=== PATIENT | male | born 1945 ===

== ENCOUNTER 2016-07-26 20:04 | Emergency (ER) | payer MEDICARE, OTHER ==
[2016-07-26 20:28] VITALS: BP 131/63
[2016-07-26] MEDS ORDERED: Acetaminophen 325 MG Tab PO ONE (21:07)
--- NOTE | 2016-07-26 21:34 | EDM.PDOC ---
ED HPI GENERAL MEDICAL PROBLEM - General Chief Complaint: General Stated Complaint: FELL HURT HEAD Time Seen by Provider: 07/26/16 20:30 Source of Information: Reports: Patient History Limitations: Reports: No limitations - History of Present Illness INITIAL COMMENTS - FREE TEXT/NARRATIVE: This is a 71yo M here fishing at the [employer] who was socially drinking and fell on the wood floor and hit his head and left shoulder. Patient was having difficulty moving his left shoulder and was brought in by EMT. 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 Patient denies any loc or dizziness. 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 Onset: sudden Location: Reports: head, face, upper extremity, left Quality: Reports: Ache Severity: moderate Improves with: Reports: None Worsens with: Reports: Movement Associated Symptoms: Reports: denies other symptoms left shoulder Pain Score (Numeric/FACES): 7 - Related Data Allergies Allergy/AdvReac Type Severity Reaction Status Date / Time latex Allergy Itching Verified 07/26/16 20:16 Home Meds: Home Meds Allopurinol [Zyloprim] 100 mg PO DAILY 07/26/16 [History] Aspirin 324 mg PO ONETIME 07/26/16 [History] Carvedilol 25 mg PO DAILY 07/26/16 [History] Furosemide [Lasix] 40 mg PO DAILY 07/26/16 [History] Isosorbide Mononitrate 20 mg PO DAILY 07/26/16 [History] Memantine HCl [Namenda Xr] 1 each PO DAILY 07/26/16 [History] Memantine [Namenda] 5 mg PO DAILY 07/26/16 [History] Omeprazole 20 mg PO DAILY 07/26/16 [History] Pramipexole [Mirapex] 1 mg PO DAILY 07/26/16 [History] Sertraline [Zoloft] 25 mg PO BEDTIME 07/26/16 [History] Tolterodine Tartrate [Detrol LA] 2 mg PO DAILY 07/26/16 [History] amLODIPine [Norvasc] 5 mg PO DAILY 07/26/16 [History] hydrALAZINE [Apresoline] 25 mg PO DAILY 07/26/16 [History] metFORMIN [Glucophage XR] 500 mg PO DAILY 07/26/16 [History] ED ROS GENERAL - Review of Systems Review Of Systems: ROS reveals no pertinent complaints other than HPI. ED EXAM, GENERAL - Physical Exam Exam: See Below Exam Limited By: No limitations General Appearance: alert, WD/WN, no apparent distress Eye Exam: bilateral eye: EOMI, PERRL Ears: normal external exam Nose: normal inspection Throat/Mouth: Normal inspection Head: atraumatic, normocephalic, facial tenderness Neck: normal inspection, supple, non-tender Respiratory/Chest: no respiratory distress, lungs clear, normal breath sounds Cardiovascular: irregularly irregular GI/Abdominal: normal bowel sounds Extremities: pedal edema, arm pain Neurological: alert, oriented, CN II-XII intact Psychiatric: normal affect, normal mood Skin Exam: Warm, Dry, Intact Course - Vital Signs Last Recorded V/S: Last Vital Signs Temp 36.5 C 07/26/16 20:22 Pulse 108 H 07/26/16 20:22 Resp 22 H 07/26/16 20:22 BP 131/63 07/26/16 20:22 Pulse Ox 98 07/26/16 20:22 - Orders/Labs/Meds Orders: Active Orders 24 hr Category Date Time Status EKG Documentation Completion [RC] ASDIRECTED Care 07/26/16 20:44 Active Head wo Cont [CT] Stat Exams 07/26/16 Ordered Shoulder Comp Lt [CR] Stat Exams 07/26/16 Ordered Labs: Laboratory Tests 07/26/16 07/26/16 07/26/16 Range/Units 20:45 20:45 20:45 WBC 12.1 H (4.0-11.0) K/uL RBC 3.21 L (4.50-6.50) M/uL Hgb 10.9 L (13.0-18.0) g/dL Hct 31.5 L (40.0-54.0) % MCV 98 H (76-96) fL MCH 34.0 H (27.0-32.0) pg MCHC 34.6 (31.0-35.0) g/dL RDW 15.2 (11.0-16.0) % Plt Count 149 L (150-400) K/uL MPV 11.9 H (6.0-10.0) fL Neut % (Auto) 72.6 H (45.0-70.0) % Lymph % (Auto) 16.5 L (20.0-40.0) % Ell[place] % (Auto) 9.0 (3.0-10.0) % Eos % (Auto) 1.7 (1.0-5.0) % Baso % (Auto) 0.2 (0.0-0.5) % Neut # 8.75 H (2.00-7.50) K/uL Lymph # 1.99 (1.50-4.00) K/uL Ellsworth # 1.09 H (0.20-0.80) K/uL Eos # 0.20 (0.04-0.40) K/uL Baso # 0.02 (0.02-0.10) K/uL PT 10.5 (9.0-11.5) sec INR 1.0 (1.0-3.5) Sodium (136-145) mmol/L Potassium (3.5-5.1) mmol/L Chloride (98-107) mmol/L Carbon Dioxide (21.0-32.0) mmol/L Anion Gap (5.0-15.0) mmol/L BUN (8-26) mg/dL Creatinine (0.70-1.30) mg/dL Est Cr Clr Drug Dosing mL/min Estimated GFR (MDRD) (>60) MLS/MIN BUN/Creatinine Ratio (6-25) Glucose (74-100) mg/dL Calcium (8.5-10.1) mg/dL Troponin I 0.017 (0.000-0.060) ng/mL 07/26/16 Range/Units 20:45 WBC (4.0-11.0) K/uL RBC (4.50-6.50) M/uL Hgb (13.0-18.0) g/dL Hct (40.0-54.0) % MCV (76-96) fL MCH (27.0-32.0) pg MCHC (31.0-35.0) g/dL RDW (11.0-16.0) % Plt Count (150-400) K/uL MPV (6.0-10.0) fL Neut % (Auto) (45.0-70.0) % Lymph % (Auto) (20.0-40.0) % [place] % (Auto) (3.0-10.0) % Eos % (Auto) (1.0-5.0) % Baso % (Auto) (0.0-0.5) % Neut # (2.00-7.50) K/uL Lymph # (1.50-4.00) K/uL Ell[place] # (0.20-0.80) K/uL Eos # (0.04-0.40) K/uL Baso # (0.02-0.10) K/uL PT (9.0-11.5) sec INR (1.0-3.5) Sodium 140 (136-145) mmol/L Potassium 4.0 (3.5-5.1) mmol/L Chloride 103 (98-107) mmol/L Carbon Dioxide 27.0 (21.0-32.0) mmol/L Anion Gap 14.0 (5.0-15.0) mmol/L BUN 48 H (8-26) mg/dL Creatinine 2.54 H (0.70-1.30) mg/dL Est Cr Clr Drug Dosing 20.85 mL/min Estimated GFR (MDRD) 25 L (>60) MLS/MIN BUN/Creatinine Ratio 18.9 (6-25) Glucose 236 H (74-100) mg/dL Calcium 9.0 (8.5-10.1) mg/dL Troponin I (0.000-0.060) ng/mL Meds: Medications Discontinued Medications Generic Name Dose Route Start Last Admin Trade Name Shivq PRN Reason Stop Dose Admin Acetaminophen 650 mg 07/26/16 21:07 07/26/16 21:18 Tylenol PO 07/26/16 21:08 650 mg NOW ONE Administration Departure - Departure Time of Disposition: 21:55 Disposition: Home, Self-Care 01 Condition: good Clinical Impression: Fall from ground level Left shoulder pain Qualifiers: Chronicity: acute Qualified Code(s): M25.512 - Pain in left shoulder Instructions: Cryotherapy, [id number] Referrals: PCP,None [Primary Care Provider] - Forms: ED Department Discharge Additional Instructions: Follow-up with your provider at home> If you have any questions while you are still in the area call [phone]. - Problem List Review Problem List Initiated/Reviewed/Updated: Yes - My Orders Last 24 Hours: My Active Orders 07/26/16 Head wo Cont [CT] Stat Shoulder Comp Lt [CR] Stat 07/26/16 20:44 EKG Documentation Completion [RC] ASDIRECTED - Assessment/Plan Last 24 Hours: My Active Orders 07/26/16 Head wo Cont [CT] Stat Shoulder Comp Lt [CR] Stat 07/26/16 20:44 EKG Documentation Completion [RC] ASDIRECTED Plan: Counseled on labs - slight elevated WBC, anemia, Renal dysfunction and glucose. Patient states he will f/u with his PCP, [employer] [facility] [facility] when he gets home. Discussed close monitoring and f/u and patient agrees with plan. Denies any current concern or further questions. No changes to medications and f /u Atrial fibrillation for need for anticoagulation and discussed with daughter on phone.
--- NOTE | 2016-07-27 19:50 | CT ---
DATE OF SERVICE: 07/26/2016 CLINICAL DATA: FALL. UNENHANCED BRAIN CT Multislice acquisition through the brain without IV contrast was performed. No priors. There is diffuse cerebral atrophy. There is a cavum septum pellucidum. This is a normal variant. There are periventricular lucencies bilaterally consistent with small vessel ischemic change. No masses or mass effect. No intracranial hemorrhage. No evidence of acute or subacute infarct. There is mucosal thickening in the ethmoid and maxillary sinuses consistent with chronic sinusitis. No fractures. IMPRESSION: No acute intracranial abnormalities. [id number] [facility]
--- NOTE | 2016-07-27 19:53 | CR ---
DATE OF SERVICE: 07/26/2016 CLINICAL DATA: FALL. LEFT SHOULDER There is diffuse osteopenia. There is narrowing of the subacromial space suggesting a chronic rotator cuff tear. An MRI scan may be helpful. No acute fracture or dislocation. No focal lytic or blastic bone lesions. 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 [id number] [facility]
== END 2016-07-26 21:38 | disposition home or self-care (01) ==
LOC: LB.ED 20:04 → EDBD 20:04 → LB.ED 21:38
DX: M25.512 Pain in left shoulder (principal); Z79.82 Long term (current) use of aspirin; Z79.899 Other long term (current) drug therapy; Z79.84 Long term (current) use of oral hypoglycemic drugs; W19.XXXA Unspecified fall, initial encounter; Z95.2 Presence of prosthetic heart valve; Z86.73 Personal history of transient ischemic attack (TIA), and cerebral infarction without residual deficits; I48.91 Unspecified atrial fibrillation
CPT/HCPCS: 36415; 70450; 73030; 80048; 84484; 85025; 85610; 93005; 99283; 99284; A0425; A0429; A9270